=== PATIENT | male | born 1960 ===

== ENCOUNTER → 2017-04-27 09:27 | Day surgery (SDC) | payer BC ==
[~2017-04-27 09:27] MED LIST: Atracurium* 10 MG/ML 10 ML VIAL ONE; Buffered Lidocaine 0.9% SYRIN* 5 ML/SYR SYRINGE INTRADERM ONE; Buffered Lidocaine 0.9% SYRIN* 5 ML/SYR SYRINGE ONE; Ciprofloxacin 400MG IVPREMIX(* 400 MG/200 ML BAG ONE; Clindamycin 900 MG IVPREMIX(* 900 MG/50 ML SDV IV ONE; DiMENhydriNATE IV* 50 MG/ML VIAL IV PUSH PRN; Famotidine IV* 10 MG/ML 2 ML (20 mg) IV ONE; Famotidine IV* 10 MG/ML 2 ML (20 mg) ONE; Glycopyrrolate IV* 0.2 MG/ML 1 ML VIAL ONE; Labetalol IV* 5 MG/ML 20 ML VIAL ONE; Lidocaine 1% MPF wEPI 200,000* 30 ML SDV ONE; Midazolam* 1 MG/ML 5 ML VIAL (5 MG) ONE; Morphine INJ* 2 MG/ML 1 ML CARPUJECT IV PRN; Naloxone* 0.4 MG/ML 1 ML VIAL IV PRN; Neostigmine Methylsulfate* 2 MG/2 ML SYRINGE ONE; Ondansetron INJ* 2 MG/ML VIAL ONE; PROCHLORPERAZINE INJ 5 MG/ML 2 ML VIAL IV PRN; PROCHLORPERAZINE INJ 5 MG/ML 2 ML VIAL ONE; Phenylephrine INJ* 10 MG/ML 1 ML VIAL (10 MG) ONE; Propofol* 10 MG/ML 20 ML BTL IV PUSH ONE; Scopolamine 1.5 mg* PATCH TRANSDERM PRN; Scopolamine PATCH Remove* 1 NOTE MISC PATCH OFF ONE; fentaNYL* 50 MCG/ML 2 ML VIAL (100 MCG VIAL) ONE; hydrALAZINE IV* 20 MG/ML VIAL ONE; oxyCODONE ORAL.SOLN* 5 MG/5 ML UDC ONE; oxyCODONE/Acetamin 5/325 MG* TAB PO PRN
[2017-04-27] MEDS: fentaNYL* 50 MCG/ML 2 ML VIAL (100 MCG VIAL) IV PRN ×4 (13:03→13:57)
[2017-04-27 14:54] VITALS: BP 141/86
--- NOTE | 2017-04-28 11:10 | OP ---
DATE OF OPERATION: 04/27/17 - [facility] DATE OF : 56 SURGEON: Thomas Lazaro MD FINANCIAL ANALYST ACCOUNTANT: FORD Huang ANESTHESIA: General endotracheal anesthesia. 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 OPERATIVE PROCEDURE: Excision of the right submandibular gland. BLOOD LOSS: Less than 5 mL. SPECIMEN: Right submandibular gland. COMPLICATIONS: None. DESCRIPTION OF PROCEDURE: The patient was taken to the operating room and placed in the supine position on the operating room table. General anesthesia was induced and he was orotracheally intubated. He was positioned with his head hyperextended and turned to the left side exposing the right neck and an incision was demarcated inferior to the submandibular gland more than 2 fingerbreadths below the inferior aspect of the mandible. This was injected with 1% lidocaine and 1:200,000 epinephrine. He was prepped with Betadine and draped in a sterile fashion. An incision was made through the skin to the platysma muscle. I then used a cross clamp and cut technique cutting inferior to my clamping to pull the platysma muscle superiorly protecting the margin of mandibular nerve. I then repeated this along the inferior aspect of the submandibular gland to retract the submandibular fascia up off the gland. Dissection was carried out by doing blunt dissection and either bipolar or cross clamp cut and tie to circumferentially come around the submandibular gland , taking it out of the neck. The feeding vessels from the facial artery and vein were cross clamped, cut and tied. The nerve branch from the lingual nerve was seen. It was clamped next to the gland, cut and tied. The duct was isolated, clamped, cut and tied, and the gland was taken out of the neck. The wound was irrigated with copious normal saline, and the fascia layer was reapproximated with some 3-0 Vicryl, and then deep dermal and muscular 3-0 Vicryl were placed, running subcuticular 4-0 Monocryl, skin glue and Mastisol. The patient tolerated the procedure well, no complications, transferred to the recovery room in stable condition. [id number]/[facility] #: [id number] MTDD
== END | disposition home or self-care (01) ==
LOC: OR 09:27
PROVIDERS: ATTEND Otolaryngology
DX: K11.5 Sialolithiasis (principal); K11.23 Chronic sialoadenitis; E11.9 Type 2 diabetes mellitus without complications; Z79.84 Long term (current) use of oral hypoglycemic drugs; I10 Essential (primary) hypertension; Z85.72 Personal history of non-Hodgkin lymphomas
CPT/HCPCS: 88307; A9270-GY; J0360; J0744; J0780; J2001; J2250; J2405; J2704; J3010